=== PATIENT | female | born 1945 | race Caucasian/White ===

== ENCOUNTER → 2017-12-31 | Outpatient (CLI) | payer MEDICARE, OTHER | END | disposition home or self-care (01) | LOC: PCVCCLINIC 11:02 | DX: R07.9 Chest pain, unspecified (principal); E78.00 Pure hypercholesterolemia, unspecified; K21.9 Gastro-esophageal reflux disease without esophagitis; R94.31 Abnormal electrocardiogram [ECG] [EKG] | CPT/HCPCS: 93005; G0463 ==

== ENCOUNTER → 2018-06-23 | Outpatient (CLI) | payer MEDICARE, OTHER ==
--- NOTE | 2018-06-23 15:09 | PCVCIMAG ---
APPROVED REPORT Study performed: 06/23/2018 14:07:26 EXAM: Comprehensive 2D, Doppler, and color-flow Echocardiogram Patient Location: Echo lab Status: routine BSA: 1.80 HR: 79 bpmBP: 104/60 mmHg Rhythm: NSR Other Information Study Quality: Technically Limited Risk Factors: Cardiac Risk Factors: HTN Indications Chest Pain Hyperlipidemia 2D Dimensions RVDd: 30.47 mm IVSd: 7.73 (7-11mm)LVOT Diam: 20.06 (18-24mm) LVDd: 38.04 mm PWd: 6.96 (7-11mm)Ascending Ao: 35.30 (22-36mm) LVDs: 25.23 (25-40mm) Left Atrium: 32.44 (27-40mm) Volumes Left Atrial Volume (Systole) Single Plane 4CH: 26.25 mLSingle Plane 2CH: 18.55 mL LA ESV Index: 14.00 mL/m2 Aortic Valve AoV Peak Bolivar.: 1.28 m/s AO Peak Gr.: 6.54 mmHgLVOT Max P.67 mmHg LVOT Max V: 0.96 m/s BRIAN Vmax: 2.37 cm2 Mitral Valve E/A Ratio: 0.5 MV Decel. Time: 188.72 ms MV E Max Bolivar.: 0.51 m/s MV A Bolivar.: 1.02 m/s MV PHT: 54.73 ms TDI E/Lateral E': 6.38E/Medial E': 10.20 Medial E' Bolivar.: 0.05 m/s Lateral E' Bolivar.: 0.08 m/s Pulmonary Valve PV Peak Gr.: 2.61 mmHg Pulmonary Vein P Vein S: 0.40 m/sP Vein A: 0.32 m/s P Vein D: 0.26 m/sP Vein A Dur.: 79.6 msec P Vein S/D Ratio: 1.54 Tricuspid Valve TR Peak Bolivar.: 2.37 m/s TR Peak Gr.: 22.48 mmHg Left Ventricle The left ventricle is normal size. There is normal LV segmental wall motion. There is normal left ventricular wall thickness. Left ventricular systolic function is normal. The left ventricular ejection fraction is within the normal range. LVEF is 55-60%. Grade I - abnormal relaxation pattern. Right Ventricle The right ventricle is normal size. The right ventricular systolic function is normal. Atria The left atrium size is normal. The right atrium size is normal. Aortic Valve The aortic valve is normal in structure. No aortic regurgitation is present. There is no aortic valvular stenosis. Mitral Valve The mitral valve is normal in structure. There is no mitral valve regurgitation noted. No evidence of mitral valve stenosis. Tricuspid Valve The tricuspid valve is normal in structure. Trace tricuspid regurgitation. Pulmonary artery pressure is 29mmHg. Pulmonic Valve The pulmonary valve is normal in structure. Trace pulmonic regurgitation. Great Vessels The aortic root is normal in size. IVC is normal in size and collapses >50% with inspiration. Pericardium There is no pericardial effusion. <Conclusion> The left ventricle is normal size. There is normal left ventricular wall thickness. Left ventricular systolic function is normal. Grade I - abnormal relaxation pattern. The right ventricle is normal size. The left atrium size is normal. The right atrium size is normal. The aortic valve is normal in structure. There is no mitral valve regurgitation noted. Trace tricuspid regurgitation. Pulmonary artery pressure is 29mmHg.
== END | disposition home or self-care (01) ==
LOC: PCVCIMAG 14:09
PROVIDERS: ATTEND Internal Medicine Cardiovascular Disease
DX: R07.9 Chest pain, unspecified (principal); E78.00 Pure hypercholesterolemia, unspecified; K21.9 Gastro-esophageal reflux disease without esophagitis; Z79.82 Long term (current) use of aspirin; Z79.899 Other long term (current) drug therapy
CPT/HCPCS: 93005; 93306; G0463